=== PATIENT | female | born 2000 | race Hispanic/Latino ===

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

== ENCOUNTER → 2019-03-04 | Outpatient (CLI) | payer OTHER ==
--- NOTE | 2019-03-05 08:13 | RAD ---
Findings: Number of images: Seven Location: Lumbar spine There are five nonrib-bearing vertebral bodies. Cholecystectomy clips. Moderate colonic stool volume. Nonobstructive bowel gas pattern. No acute fracture or subluxation. Vertebral body heights and disc spaces are maintained. No abnormal translational motion. No pars defect identified. IMPRESSION: Unremarkable lumbar spine radiographs. Electronically signed by: Jordy Johnson MD 03/05/2019 8:11 AM CDT
== END ==
LOC: RAD 15:01
PROVIDERS: ATTEND Nurse Practitioner Family
DX: M41.126 Adolescent idiopathic scoliosis, lumbar region (principal)

== ENCOUNTER → 2019-05-01 | Outpatient (CLI) | payer OTHER | LOC: LAB.O 10:10 | PROVIDERS: ATTEND Internal Medicine Pulmonary Disease | DX: E84.9 Cystic fibrosis, unspecified (principal) ==

== ENCOUNTER → 2019-07-13 | Outpatient (CLI) | payer OTHER | LOC: LAB.O 14:23 | PROVIDERS: ATTEND Registered Nurse General Practice | DX: R22.43 Localized swelling, mass and lump, lower limb, bilateral (principal) ==

== ENCOUNTER → 2019-08-18 | Outpatient (CLI) | payer OTHER | LOC: LAB.O 11:45 | PROVIDERS: ATTEND Nurse Practitioner Family | DX: R11.0 Nausea (principal) ==

== ENCOUNTER → 2019-08-21 | Outpatient (CLI) | payer OTHER ==
--- NOTE | 2019-08-21 15:13 | RAD ---
EXAM: Abdomen Series CLINICAL HISTORY: NAUSEA COMPARISON STUDY: Chest x-ray December 21, 2015 TECHNICAL: Flat and upright views of the abdomen and a single view chest were performed. FINDINGS: The chest x-ray shows significant pulmonary parenchymal changes with new opacities in the both upper lobes. Since the previous chest x-ray, a Mediport catheter is been placed with the tip at the superior vena cava. The lungs are hyperexpanded. Non-obstructive gas pattern. The bony structures are grossly normal. No abnormal calcifications. Cholecystectomy clips are present. IMPRESSION: 1. No evidence for bowel obstruction. 2. Significant chronic pulmonary disease with new opacities in the bilateral upper lobes that could be infiltrate or atelectasis. Electronically signed by: Gokul Bo MD 08/21/2019 3:12 PM [facility]
== END ==
LOC: RAD 14:42
PROVIDERS: ATTEND Nurse Practitioner Family
DX: R11.0 Nausea (principal); J98.4 Other disorders of lung; R91.8 Other nonspecific abnormal finding of lung field

== ENCOUNTER 2019-11-15 15:47 | Emergency (ER) | payer OTHER ==
--- NOTE | 2019-11-15 16:48 | ED.PDOC ---
History of Present Illness - General Chief Complaint: Chest Pain/WI Stated Complaint: chest pain,shortness of breath Time Seen by Provider: 11/15/19 16:14 - History of Present Illness Initial Comments: c/o having central chest pain , some sob and cough with hemoptysis since 1 day , some wheezing , no fever or chills Allergies/Adverse Reactions: Allergies Bee Venom Allergy (Verified 04/17/16 18:45) Ticarcillin Allergy (Verified 04/17/16 18:45) Albuterol Adverse Reaction (Verified 04/17/16 18:45) Home Medications: Ambulatory Orders Amoxicillin & Pot Clavulanate [Augmentin Tab] 875 mg PO BID 11/15/19 Azelastine Nasal [place] [Astelin Nasal [place]] 137 mcg NA BID 11/15/19 Aztreonam Lysine [Cayston] 75 mg IN TID 11/15/19 Budesonide-Formoterol Fumarate [Symbicort] 2 aer IN DAILY 11/15/19 Cholecalciferol [Decara] 25,000 unit PO BID 11/15/19 Dornase Billy [Pulmozyme] 1 mg IN BID 11/15/19 Fluticasone Propionate (Nasal) [Fluticasone Propionate] 50 mcg NA BID 11/15/19 Hypertonic Nacl NEB BID 11/15/19 Levalbuterol Nebs [Xopenex NEBS] 0.63 mg NEB TID 11/15/19 Mirtazapine [Remeron] 15 mg PO BEDTIME 11/15/19 Montelukast [Singulair] 10 mg PO DAILY 11/15/19 Multiple Vitamins W/ Minerals [Multivitamin Adults] 2 tab PO .NOON 11/15/19 Norgestimate-Ethinyl Estradiol [Sprintec 28] 1 tab PO DAILY 11/15/19 Omeprazole [Omeprazole Dr] 40 mg PO DAILY 11/15/19 Ondansetron Tab [Zofran Tab] 4 mg PO PRN 11/15/19 Phytonadione [Vitamin K1] 0.5 mg IJ DAILY 11/15/19 RX: Ciprofloxacin HCl 750 mg PO BID 11/15/19 RX: Loratadine 10 mg PO DAILY 11/15/19 RX: Tobramycin 300 mg IN BID 11/15/19 Thyroid [Color Finisher Thyroid 60] 60 mg PO DAILY 11/15/19 Trikafta 100/50/75/150 11/15/19 Vitamin A [Natural Vitamin A] 10,000 unit PO DAILY 11/15/19 Vitamin E [E-400] 400 unit PO DAILY 11/15/19 Review of Systems - Review of Systems Constitutional: States: no symptoms reported EENTM: States: no symptoms reported Respiratory: States: see HPI Cardiology: States: no symptoms reported Gastrointestinal/Abdominal: States: no symptoms reported Genitourinary: States: no symptoms reported Musculoskeletal: States: no symptoms reported Skin: States: no symptoms reported Neurological: States: no symptoms reported Endocrine: States: no symptoms reported Hematologic/Lymphatic: States: no symptoms reported Past Medical History (General) - Patient Medical History Hx Stroke: No Hx Dementia: No Hx Asthma: No Hx Congestive Heart Failure: No Hx Diabetes: Yes Surgical History: cholecystectomy - Vaccination History Hx Influenza Vaccination: Yes - Social History Hx Tobacco Use: No Hx Chewing Tobacco Use: No Hx Alcohol Use: No Hx Substance Use: No Hx Substance Use Treatment: No Hx Depression: No Hx Physical Abuse: No Hx Emotional Abuse: No Hx Suspected Abuse: No - Female History Patient : No Family Medical History - Family History Mother Family History: No Known Living Status: Still Living Physical Exam - Physical Exam General Appearance: Alert, Comfortable Eyes, Ears, Nose, Throat Exam: PERRL/EOMI, normal ENT inspection Neck: non-tender, full range of motion, supple, normal inspection, limited range of motion Respiratory: lungs clear, normal breath sounds, no respiratory distress, no accessory muscle use Cardiovascular/Chest: regular rate, rhythm, no edema, no gallop, no JVD, no murmur Extremity: normal range of motion, non-tender, normal inspection, no pedal edema Neurologic: no motor/sensory deficits, alert, normal mood/affect, oriented x 3 Lymphatic: no adenopathy Progress - Progress Progress: 11/15/19 18:59 Case d/w pt Dr Hendrickson : [facility] , agreed to admit her - Results/Orders Results/Orders: 11/15/19 16:39 EKG .ONCE Laboratory Results WBC 8.2 K/mm3 (4.8-10.8) 11/15/19 16:55 RBC 3.96 M/mm3 (4.20-5.40) L 11/15/19 16:55 Hgb 11.6 gm/dL (12.0-16.0) L 11/15/19 16:55 Hct 34.4 % (36.0-47.0) L 11/15/19 16:55 MCV 86.7 fl (81.0-99.0) 11/15/19 16:55 MCH 29.1 pg (27.0-31.0) 11/15/19 16:55 MCHC 33.6 g/dL (33.0-37.0) 11/15/19 16:55 RDW 16.7 % (11.5-14.5) H 11/15/19 16:55 Plt Count 408 K/mm3 (130-400) H 11/15/19 16:55 MPV 8.2 fl (7.40-10.4) 11/15/19 16:55 Absolute Neuts (auto) 4.40 K/uL (1.8-6.8) 11/15/19 16:55 Absolute Lymphs (auto) 2.30 K/uL (1.0-3.4) 11/15/19 16:55 Absolute Monos (auto) 1.00 K/uL (0.2-0.8) H 11/15/19 16:55 Absolute Eos (auto) 0.40 K/uL (0.0-0.4) 11/15/19 16:55 Absolute Basos (auto) 0.10 K/uL (0.0-0.1) 11/15/19 16:55 Neutrophils % 54.1 % (42.0-78.0) 11/15/19 16:55 Lymphocytes % 27.7 % (20.0-50.0) 11/15/19 16:55 Monocytes % 12.4 % (2.0-9.0) H 11/15/19 16:55 Eosinophils % 5.0 % (1.0-5.0) 11/15/19 16:55 Basophils % 0.8 % (0.0-2.0) 11/15/19 16:55 D-Dimer, Quantitative 167 ng/ml (131-400) 11/15/19 16:55 Sodium 136 mmol/L (135-145) 11/15/19 16:55 Potassium 3.5 mmol/L (3.6-5.0) L 11/15/19 16:55 Chloride 105 mmol/L (101-111) 11/15/19 16:55 Carbon Dioxide 23 mmol/L (21-31) 11/15/19 16:55 Anion Gap 11.5 (12-18) L 11/15/19 16:55 BUN 12 mg/dL (7-18) 11/15/19 16:55 Creatinine 0.51 mg/dL (0.6-1.3) L 11/15/19 16:55 BUN/Creatinine Ratio 23.5 (10-20) H 11/15/19 16:55 Random Glucose 60 mg/dL (70-105) L 11/15/19 16:55 Serum Osmolality 269.6 mOsm/L (275-295) L 11/15/19 16:55 Calcium 9.1 mg/dL (8.4-10.2) 11/15/19 16:55 Total Bilirubin 0.5 mg/dL (0.2-1.0) 11/15/19 16:55 AST 18 IU/L (10-42) 11/15/19 16:55 ALT 15 IU/L (10-60) 11/15/19 16:55 Alkaline Phosphatase 71 IU/L (42-121) 11/15/19 16:55 Serum Total Protein 7.4 gm/dL (6.4-8.2) 11/15/19 16:55 Albumin 3.4 g/dl (3.2-5.5) 11/15/19 16:55 Globulin 4.0 gm/dL (2.3-3.5) H 11/15/19 16:55 Albumin/Globulin Ratio 0.9 (1.1-1.9) L 11/15/19 16:55 Serum HCG, Qual Negative (NEGATIVE) 11/15/19 17:09 - EKG/XRAY/CT EKG: Sinus Departure - Departure Clinical Impression: Pneumonia, Bronchiectasis Time of Disposition: 19:00 Disposition: Transfer to Hospital Condition: Good Departure Forms: ED Discharge - Pt. Copy, Patient Portal Self Enrollment Instructions: DI for Chest Pain Diet: resume usual diet Activity: increase activity as tolerated, walking as tolerated Referrals: GARRET SCHULTZ IV, [employer] [Primary Care Provider] - 1-2 Weeks Home Medications: Ambulatory Orders Amoxicillin & Pot Clavulanate [Augmentin Tab] 875 mg PO BID 11/15/19 Azelastine Nasal [place] [Astelin Nasal [place]] 137 mcg NA BID 11/15/19 Aztreonam Lysine [Cayston] 75 mg IN TID 11/15/19 Budesonide-Formoterol Fumarate [Symbicort] 2 aer IN DAILY 11/15/19 Cholecalciferol [Decara] 25,000 unit PO BID 11/15/19 Dornase Billy [Pulmozyme] 1 mg IN BID 11/15/19 Fluticasone Propionate (Nasal) [Fluticasone Propionate] 50 mcg NA BID 11/15/19 Hypertonic Nacl NEB BID 11/15/19 Levalbuterol Nebs [Xopenex NEBS] 0.63 mg NEB TID 11/15/19 Mirtazapine [Remeron] 15 mg PO BEDTIME 11/15/19 Montelukast [Singulair] 10 mg PO DAILY 11/15/19 Multiple Vitamins W/ Minerals [Multivitamin Adults] 2 tab PO .NOON 11/15/19 Norgestimate-Ethinyl Estradiol [Sprintec 28] 1 tab PO DAILY 11/15/19 Omeprazole [Omeprazole Dr] 40 mg PO DAILY 11/15/19 Ondansetron Tab [Zofran Tab] 4 mg PO PRN 11/15/19 Phytonadione [Vitamin K1] 0.5 mg IJ DAILY 11/15/19 RX: Ciprofloxacin HCl 750 mg PO BID 11/15/19 RX: Loratadine 10 mg PO DAILY 11/15/19 RX: Tobramycin 300 mg IN BID 11/15/19 Thyroid [Color Finisher Thyroid 60] 60 mg PO DAILY 11/15/19 Trikafta 100/50/75/150 11/15/19 Vitamin A [Natural Vitamin A] 10,000 unit PO DAILY 11/15/19 Vitamin E [E-400] 400 unit PO DAILY 11/15/19
--- NOTE | 2019-11-15 18:07 | CT ---
PROCEDURE: Chest w/o Contrast CLINICAL HISTORY: 19 years Female sob , pt with cystic fibrosis COMPARISON: None. TECHNIQUE: Contiguous axial images obtained through the chest without IV contrast. Reformatted images obtained. This exam was performed according to our department optimization program which includes automated exposure control, adjustment of the mA and/or kv according to patient size and/or use of iterative reconstruction technique. FINDINGS: [id number] catheter over the right chest. No evidence of pericardial pleural effusion. Low attenuation along the falciform ligament in the liver likely secondary to fatty infiltration. Mildly prominent mediastinal and hilar lymph nodes. Bronchiectasis with cystic areas consistent with known cystic fibrosis. There are patchy areas of infiltrate bilaterally which are nonspecific. Without previous for comparison it is difficult to determine whether this represents chronic change or acute infiltrate superimposed on chronic changes of cystic fibrosis. There is some groundglass density in the both lung bases which appears unchanged when compared to the images from 2015. IMPRESSION: Changes of cystic fibrosis with bronchiectasis and bronchial wall thickening There are areas of nonspecific infiltrate bilaterally which may be chronic. The possibility of superimposed infection cannot be excluded on the basis of this exam Electronically signed by: May Harris MD 11/15/2019 6:06 PM CDT
[2019-11-15] MEDS ORDERED: HEPARIN SODIUM 100 U/ML 5 ML SYG IV ONE (19:27)
[2019-11-15 19:34] VITALS: BP 106/76; TEMP 97.5; O2SAT 99
== END 2019-11-15 19:30 | disposition short-term general hospital (02) ==
LOC: ER 15:47
DX: J18.9 Pneumonia, unspecified organism (principal); J47.9 Bronchiectasis, uncomplicated; R07.9 Chest pain, unspecified; E11.9 Type 2 diabetes mellitus without complications; Z79.899 Other long term (current) drug therapy
CPT/HCPCS: 36415; 71250; 80053; 84703; 85025; 85379; 93005; J1642

== ENCOUNTER → 2020-08-04 | Outpatient (CLI) | payer OTHER | LOC: LAB.O 15:49 | PROVIDERS: ATTEND Physician Assistant | DX: J47.1 Bronchiectasis with (acute) exacerbation (principal); E84.0 Cystic fibrosis with pulmonary manifestations; Z51.81 Encounter for therapeutic drug level monitoring ==

== ENCOUNTER → 2020-09-12 | Outpatient (CLI) | payer OTHER | LOC: LAB.O 10:13 | PROVIDERS: ATTEND Physician Assistant | DX: E84.0 Cystic fibrosis with pulmonary manifestations (principal); Z51.81 Encounter for therapeutic drug level monitoring; Z95.828 Presence of other vascular implants and grafts ==

== ENCOUNTER → 2020-09-20 | Outpatient (CLI) | payer OTHER | LOC: LAB.O 10:29 | PROVIDERS: ATTEND Physician Assistant | DX: E84.0 Cystic fibrosis with pulmonary manifestations (principal); Z51.81 Encounter for therapeutic drug level monitoring ==

== ENCOUNTER → 2020-09-27 | Outpatient (CLI) | payer OTHER | LOC: LAB.O 10:51 | PROVIDERS: ATTEND Physician Assistant | DX: E84.0 Cystic fibrosis with pulmonary manifestations (principal); Z51.81 Encounter for therapeutic drug level monitoring ==